=== PATIENT | female | born 1965 | race Two or more races ===

== ENCOUNTER 2019-03-06 21:14 | Emergency (ER) | payer OTHER ==
[~2019-03-06] VITALS: Ht 160 cm; Wt 58.1 kg
== END 2019-03-06 22:26 | disposition home or self-care (01) ==
LOC: ER 21:14
DX: B35.6 Tinea cruris (principal)

== ENCOUNTER 2020-11-12 14:45 | Emergency (ER) | payer OTHER ==
[~2020-11-12] VITALS: Ht 160 cm; Wt 56.7 kg
== END 2020-11-12 16:47 | disposition home or self-care (01) ==
LOC: ER 14:45
DX: S30.0XXA Contusion of lower back and pelvis, initial encounter (principal); W18.39XA Other fall on same level, initial encounter; Y93.89 Activity, other specified; Y92.832 Beach as the place of occurrence of the external cause; Y99.8 Other external cause status

== ENCOUNTER → 2020-12-01 | Emergency (ER) | payer OTHER ==
[~2020-12-01] VITALS: Ht 160 cm; Wt 65.8 kg
[~2020-12-01] MED LIST: CLOTRIMAZOLE-745 GM VG; DERMOPLAST PAIN78 GM; DOXYCYCLINE HY100 M2; MUPIROCIN15 GM TOP
== END | disposition left against medical advice (07) ==
LOC: ER 14:15
DX: R53.81 Other malaise (principal); F10.10 Alcohol abuse, uncomplicated

== ENCOUNTER 2020-12-02 20:05 | Emergency (ER) | payer OTHER ==
[~2020-12-02] VITALS: Ht 154.9 cm; Wt 72.6 kg
[~2020-12-02 20:05] MED LIST changes: -CLOTRIMAZOLE-745 GM VG; -DOXYCYCLINE HY100 M2
[2020-12-02] MEDS ORDERED: DOXYCYCLINE HY100 M2 (20:19)
[2020-12-02] MEDS ORDERED: CLOTRIMAZOLE-745 GM VG (20:19)
== END 2020-12-02 21:35 | disposition home or self-care (01) ==
LOC: ER 20:05
DX: R11.2 Nausea with vomiting, unspecified (principal); R10.2 Pelvic and perineal pain; T28 Burn and corrosion of other internal organs; X19.XXXD Contact with other heat and hot substances, subsequent encounter

== ENCOUNTER → 2020-12-02 | Emergency (ER) | payer OTHER ==
[~2020-12-02] VITALS: Ht 160 cm; Wt 56.7 kg
== END | disposition home or self-care (01) ==
LOC: ER 07:55
DX: S70.311A Abrasion, right thigh, initial encounter (principal); T24.111A Burn of first degree of right thigh, initial encounter; T79.8XXA Other early complications of trauma, initial encounter; X16.XXXA Contact with hot heating appliances, radiators and pipes, initial encounter; Y93.89 Activity, other specified; Y92.89 Other specified places as the place of occurrence of the external cause; Y99.8 Other external cause status

== ENCOUNTER 2020-12-28 03:38 | Emergency (ER) | payer OTHER ==
[~2020-12-28] VITALS: Ht 160 cm; Wt 56.7 kg
[~2020-12-28 03:38] MED LIST changes: +CLOTRIMAZOLE-745 GM VG; +DOXYCYCLINE HY100 M2
== END 2020-12-28 05:36 | disposition home or self-care (01) ==
LOC: ER 03:38
DX: R53.81 Other malaise (principal)

== ENCOUNTER 2021-01-03 19:10 | Emergency (ER) | payer OTHER ==
[~2021-01-03] VITALS: Ht 160 cm; Wt 68.0 kg
== END 2021-01-04 12:19 | disposition home or self-care (01) ==
LOC: ER 19:10
DX: F10.20 Alcohol dependence, uncomplicated (principal); Z59.0 Homelessness; Z20.822 Contact with and (suspected) exposure to COVID-19

== ENCOUNTER 2021-02-23 15:55 | Emergency (ER) | payer OTHER ==
[~2021-02-23] VITALS: Ht 160 cm; Wt 52.2 kg
[2021-02-23] MEDS ORDERED: KEFLEX750 MG PO (19:31)
== END 2021-02-23 20:20 | disposition home or self-care (01) ==
LOC: ER 15:55
DX: M54.89 Other dorsalgia (principal); G89.11 Acute pain due to trauma

== ENCOUNTER 2021-02-24 03:56 | Emergency (ER) | payer OTHER ==
[~2021-02-24] VITALS: Ht 160 cm; Wt 54.4 kg
[~2021-02-24 03:56] MED LIST changes: +KEFLEX750 MG PO
== END 2021-02-24 07:33 | disposition home or self-care (01) ==
LOC: ER 03:56
DX: R42 Dizziness and giddiness (principal)

== ENCOUNTER → 2021-03-14 | Emergency (ER) | payer OTHER ==
[~2021-03-14] VITALS: Ht 157.5 cm; Wt 70.3 kg
== END | disposition left against medical advice (07) ==
LOC: ER 15:06
DX: Z53.20 Procedure and treatment not carried out because of patient's decision for unspecified reasons (principal)

== ENCOUNTER → 2021-05-23 | Emergency (ER) | payer OTHER ==
[~2021-05-23] VITALS: Ht 160 cm; Wt 54.4 kg
== END | disposition home or self-care (01) ==
LOC: ER 08:41
DX: S43.085S Other dislocation of left shoulder joint, sequela (principal); Y08.89XS Assault by other specified means, sequela

== ENCOUNTER → 2021-05-24 | Emergency (ER) | payer OTHER ==
[~2021-05-24] VITALS: Ht 152.4 cm; Wt 54.4 kg
== END | disposition home or self-care (01) ==
LOC: ER 09:58
DX: S43.085A Other dislocation of left shoulder joint, initial encounter (principal)

== ENCOUNTER 2021-06-22 14:32 | Emergency (ER) | payer OTHER ==
[~2021-06-22] VITALS: Ht 160 cm; Wt 58.1 kg
== END 2021-06-22 22:56 | disposition home or self-care (01) ==
LOC: ER 14:32
DX: S92.351A Displaced fracture of fifth metatarsal bone, right foot, initial encounter for closed fracture (principal); W18.39XA Other fall on same level, initial encounter; Y93.89 Activity, other specified; Y92.89 Other specified places as the place of occurrence of the external cause; S90.01XA Contusion of right ankle, initial encounter; S90.02XA Contusion of left ankle, initial encounter; Z03.818 Encounter for observation for suspected exposure to other biological agents ruled out

== ENCOUNTER 2021-06-23 21:31 | Emergency (ER) | payer OTHER ==
[~2021-06-23] VITALS: Ht 160 cm; Wt 56.7 kg
== END 2021-06-24 21:20 ==
LOC: ER 21:31
DX: Z59.0 Homelessness (principal)